=== PATIENT | female | born 1965 | race Caucasian/White ===

== ENCOUNTER 2019-08-08 19:24 | Emergency (ER) | payer BC ==
[~2019-08-08] VITALS: Ht 162.6 cm; Wt 63.5 kg
[2019-08-08 20:28] VITALS: Ht 162.6 cm; Wt 63.5 kg
[2019-08-08 21:19] VITALS: BP 123/84
== END 2019-08-08 21:21 | disposition left against medical advice (07) ==
LOC: ED 19:24
DX: M54.6 Pain in thoracic spine (principal); M25.511 Pain in right shoulder; R20.2 Paresthesia of skin
CPT/HCPCS: 85378